=== PATIENT | female | born 1995 | race Hispanic/Latino ===

== ENCOUNTER 2020-07-09 05:55 | Day surgery (SDC) | payer OTHER ==
[2020-07-09] VITALS (17 sets, daily range): BP systolic 122–137; BP diastolic 76–93
[~2020-07-09] VITALS: Ht 162.6 cm; Wt 81.6 kg
[2020-07-09] MEDS ORDERED: LACTATED RINGERS 1000ML 1,000 ML IV ONE (06:21)
[2020-07-09] MEDS ORDERED: LIDOCAINE PF 2% 5ML ABBOJECT ONE (07:06)
[2020-07-09] MEDS ORDERED: MIDAZOLAM HCL 1 MG/ML 2ML VIAL ONE (07:06)
[2020-07-09] MEDS ORDERED: SUCCINYLCHOLINE CHLORIDE 20 MG/ML 10 ML VIAL ONE (07:06)
[2020-07-09] MEDS ORDERED: PROPOFOL 10 MG/ML 20ML VIAL IV ONE (07:06)
[2020-07-09] MEDS ORDERED: ROCURONIUM 10MG/1ML SYR 10 MG/ML ML ONE (07:06)
[2020-07-09] MEDS ORDERED: FENTANYL CITRATE PF 50 MCG/1 ML 2ML VIAL ONE ×2 (07:08→08:17)
[2020-07-09] MEDS: CEFAZOLIN SODIUM 1 GM VIAL ONE ×2 (07:30→07:32)
[2020-07-09] MEDS ORDERED: ESCI10TA54 PO (07:31)
[2020-07-09] MEDS ORDERED: PROP40SO PO (07:31)
[2020-07-09] MEDS ORDERED: METH10TA7 PO (07:31)
[2020-07-09] MEDS ORDERED: FENTANYL CITRATE PF 50 MCG/1 ML 5ML AMP IV ONE ×2 (07:39→08:38)
[2020-07-09] MEDS ORDERED: THROMBIN-JMI 5000 UNIT/VIAL TP ONE (07:42)
[2020-07-09] MEDS ORDERED: BUPIVACAINE/EPI/PF 0.25% 10ML VIAL IJ SCH (07:45)
[2020-07-09] MEDS ORDERED: BACITRACIN 28.4 GM OINT TP ONE (11:12)
[2020-07-09] MEDS ORDERED: CALCIUM 600 + VITAMIN D 400 TABLET PO SCH (12:30)
[2020-07-09] MEDS ORDERED: CALCITRIOL 0.25 MCG CAPSULE PO SCH (12:30)
== END 2020-07-09 13:40 | disposition home or self-care (01) ==
LOC: DAH 05:55
PROVIDERS: ATTEND Surgery
DX: E05.00 Thyrotoxicosis with diffuse goiter without thyrotoxic crisis or storm (principal); E66.9 Obesity, unspecified; Z68.30 Body mass index [BMI] 30.0-30.9, adult; Z79.899 Other long term (current) drug therapy
CPT/HCPCS: 36415; 60271; 82310; 83970; A4215; A4221; A4222; A4223; A4452; A4663; C1713; J0330; J0690; J2001; J2250; J2704; J3010 ×4; J3490 ×2; J7120